=== PATIENT | male | born 1975 | race Hispanic/Latino ===

== ENCOUNTER 2024-05-06 08:09 | Outpatient (CLI) | payer OTHER | END 2024-05-06 08:10 | disposition home or self-care (01) | LOC: CSHULT 08:09 | PROVIDERS: ATTEND Internal Medicine Gastroenterology | DX: K74.60 Unspecified cirrhosis of liver (principal); I85.00 Esophageal varices without bleeding; K21.9 Gastro-esophageal reflux disease without esophagitis | CPT/HCPCS: 76705 ==